=== PATIENT | male | born 2000 ===

== ENCOUNTER 2023-09-14 02:49 | Emergency (ER) | payer SELFPAY ==
[2023-09-14] MEDS ORDERED: Ondansetron ODT 4 MG TAB ONE (03:34)
== END 2023-09-14 06:12 ==
LOC: ERS 02:49
DX: F10.129 Alcohol abuse with intoxication, unspecified (principal); R11.2 Nausea with vomiting, unspecified
CPT/HCPCS: 99284; Q0162